=== PATIENT | male | born 1960 | race Caucasian/White ===

== ENCOUNTER 2022-10-01 10:33 | Emergency (ER) | payer OTHER, BC, SELFPAY ==
[2022-10-01 10:34] VITALS: BP 159/96; PULSE 108; RESP 16; TEMP 36.7; O2SAT 98; BMI 27.9
--- NOTE | 2022-10-01 10:47 | XR_ITS ---
FINAL REPORT CLINICAL HISTORY: right shoulder injury- box fell onto shoulder at work FINDINGS: RIGHT SHOULDER: 3 views of the right shoulder werer obtained. There is no acute fracture or dislocation. There is mild AC joint arthrosis. There is no soft tissue abnormality. IMPRESSION: No acute fracture Reviewed, Interpreted and Dictated by Ortiz Kapoor III, MD Transcribed by Mali Osullivan Authenticated and [facility]
--- NOTE | 2022-10-01 11:12 | HMH.EDGENADL ---
Discharge Plan Disposition Patient Disposition: Home, Self-Care Prescriptions Prescriptions: New naproxen 500 mg tablet 500 mg PO BID PRN (Reason: pain) Qty: 20 0RF methocarbamol 500 mg tablet 500 mg PO BID Qty: 20 0RF No Action atorvastatin 10 mg tablet 10 mg PO DAILY Label Comments: TAKE 1 TABLET BY MOUTH ONCE DAILY lisinopril-hydrochlorothiazide 20-12.5 mg tablet 1 tab PO DAILY Label Comments: TAKE 1 TABLET BY MOUTH ONCE DAILY Referrals Follow up/Referrals: Provider,Referral, MD [Referring] - See instructions Activity Restrictions/Add. Instructions Additional Instructions/Restrictions: Follow-up with your primary care physician within the next few days return the emergency department for worsening pain Clinical Impressions Clinical Impression: Injury of shoulder Stand Alone Forms Stand Alone Forms: Work/School Release Discharge ED Provider: Eugene Moyer General Adult HPI General Chief complaint: Extremity Injury, Upper Stated complaint: AO@Work 09/27 RT shoulder pain Time Seen by Provider: 10/01/22 10:40 Mode of Arrival: Ambulatory Source of Information: Patient Limitations: No Limitations Description of Symptoms (Recalled from ER Triage Doc. by RN): 62 yo M presents to ED with c/o right shoulder pain. at last week when pt was at work he was reaching up to grab something out of a box, and when he did a box fell and hit his shoulder. pt reports pain when he is lifting his arm up at shoulder socket. History of Present Illness HPI narrative: 62-year-old male presents with right shoulder pain. He says last week he was at work when he was reaching up to grab something out of a box with a box fell and hit him on the right shoulder on the top of his shoulder. He has pain now when he lifts his shoulder though he can lift it. No other injuries chest pain head injury vomiting. Related Data Home Medications Medication Instructions Recorded Confirmed atorvastatin 10 mg tablet 10 mg PO DAILY Cholesterol 10/01/22 10/01/22 lisinopril 20 1 tab PO DAILY High blood pressure 10/01/22 10/01/22 mg-hydrochlorothiazide 12.5 mg tablet Previous Rx's Medication Instructions Recorded methocarbamol 500 mg tablet 500 mg PO BID #20 tabs 10/01/22 naproxen 500 mg tablet 500 mg PO BID PRN pain #20 tabs 06/26/23 Allergies Allergy/AdvReac Type Severity Reaction Status Date / Time No Known Allergies Allergy Unverified 12/12/18 17:43 [facility] Disclaimer: The information contained in this section may have been updated after the patient was seen, as this information can be updated by other users. Medical History (Updated 10/01/22 @ 12:15 by Eugene Moyer MD) High cholesterol HTN (hypertension) Surgical History (Updated 10/01/22 @ 12:06 by Atilio Dodd, RN) No history of previous surgery Family History (Updated 10/01/22 @ 12:06 by Atilio Dodd, RN) Other Family history of hyperlipidemia Family history of hypertension Social History Smoking Status: Never smoker alcohol intake: current substance use type: denies use current occupational status: employed Travel in the last 8 weeks: None household members: family housing: house ROS Obtained: Yes All systems reviewed & no additional complaints except as documented Constitutional Constitutional: Denies fatigue Eyes Eyes: Denies dry eyes ENT Ears, Nose, Mouth, and Throat: Denies dizziness and Denies dysphagia Cardiovascular Cardiovascular: Denies leg edema Respiratory Respiratory: Denies cough Gastrointestinal Gastrointestingal: Denies dysphagia Genitourinary Male Genitourinary: Denies hematuria Musculoskeletal Musculoskeletal: Denies joint swelling Integumentary/Breasts Skin/Breast: Denies dry skin Neurologic Neurologic: Denies dizziness Endocrine Endocrine: Denies fatigue Hematologic/Lymphatic Henatologic/Lymp
[2022-10-01 12:15] VITALS: BP 119/85; PULSE 76; RESP 18; TEMP 36.6; O2SAT 97
== END 2022-10-01 12:21 | disposition home or self-care (01) ==
PROVIDERS: Emergency Provider Emergency Medicine; PCP Pediatrics
DX: M25.511 Pain in right shoulder (principal); E78.00 Pure hypercholesterolemia, unspecified; I10 Essential (primary) hypertension; W20.8XXA Other cause of strike by thrown, projected or falling object, initial encounter; Y99.0 Civilian activity done for income or pay
CPT/HCPCS: 73030; 99283; 99284